=== PATIENT | male | born 1970 | race Caucasian/White ===

== ENCOUNTER 2017-12-29 15:00 | Emergency (ER) | payer MEDICARE ==
[~2017-12-29] VITALS: Ht 175.3 cm; Wt 99.8 kg
[2017-12-29 15:08] VITALS: BP_SYST 135
[2017-12-29] MEDS ORDERED: KETOROLAC TROMETHAMINE 60 MG/2 ML VIAL IM ONE (15:30)
[2017-12-29 16:10] VITALS: BP_SYST 135
== END 2017-12-29 16:10 | disposition home or self-care (01) ==
LOC: SED 15:00
DX: G89.29 Other chronic pain (principal); M54.5 Low back pain; F10.10 Alcohol abuse, uncomplicated
CPT/HCPCS: 96372; 99283; J1885

== ENCOUNTER 2018-03-25 21:41 | Emergency (ER) | payer MEDICARE ==
[~2018-03-25] VITALS: Ht 175.3 cm; Wt 99.8 kg
[2018-03-25 21:46] VITALS: BP_SYST 157
[2018-03-25] MEDS ORDERED: traMADol HCL HCL 50 MG TABLET (ULTRAM) PO ONE (22:45)
[2018-03-25 23:10] VITALS: BP_SYST 140
== END 2018-03-25 23:10 | disposition home or self-care (01) ==
LOC: SED 21:41
DX: G89.29 Other chronic pain (principal); M25.511 Pain in right shoulder
CPT/HCPCS: 99283

== ENCOUNTER 2018-09-22 17:00 | Emergency (ER) | payer MEDICARE ==
[~2018-09-22] VITALS: Ht 175.3 cm; Wt 99.8 kg
[2018-09-22 17:02] VITALS: BP_SYST 121
[2018-09-22] MEDS ORDERED: ONDANSETRON HCL 4 MG/2 ML VIAL IVP ONE (17:30)
[2018-09-22] MEDS ORDERED: LORazepam 2 MG/ML VIAL (FOR ER USE) IVP ONE (17:30)
[2018-09-22] MEDS ORDERED: MORPHINE 4 MG/ML INJ. SYRINGE IVP ONE (17:30)
[2018-09-22 18:07] LABS: BASOPHILS # (AUTO) 0.1 K/uL (0.0-0.2); BASOPHILS % (AUTO) 1.9 % (0.0-2.0); EOSINOPHILS # (AUTO) 0.1 K/uL (0.0-0.4); EOSINOPHILS % (AUTO) 2.1 % (0.0-4.0); HEMATOCRIT 47.4 % (36-54); HEMOGLOBIN 15.8 g/dL (14.0-18.0); LYMPHOCYTES % (AUTO) 32.3 % (20.5-51.5); MEAN CORPUSCULAR HEMOGLOBIN 31 pg (27-31); MEAN CORPUSCULAR HGB CONC 33 % (32-36); MEAN CORPUSCULAR VOLUME 94 fL (79.0-98.0); MONOCYTES # (AUTO) 0.5 K/uL (0.0-1.0); MONOCYTES % (AUTO) 7.8 % (1.7-9.3); NEUTROPHILS # (AUTO) 3.6 K/uL (1.8-7.7); NEUTROPHILS % (AUTO) 55.9 % (40.0-70.0); PLATELET COUNT (AUTO) 282 K/uL (130-430); RED BLOOD CELL COUNT(AUTO) 5.07 MIL/uL (4.2-6.2); RED CELL DISTRIBUTION WIDTH 14.1 % (9.0-15.0); WHITE BLOOD COUNT (AUTO) 6.3 K/uL (4.8-10.8)
[2018-09-22 18:26] LABS: BILIRUBIN,URINE NEGATIVE (NEGATIVE); BLOOD, URINE NEGATIVE (NEGATIVE); CLARITY/URINE CLEAR (CLEAR); COLOR,URINE YELLOW (YELLOW); GLUCOSE,URINE NEGATIVE (NEGATIVE); KETONES,URINE NEGATIVE (NEGATIVE); LEUKOCYTE ESTERASE ,URINE NEGATIVE (NEGATIVE); NITRITE, URINE NEGATIVE (NEGATIVE); PH,URINE 5.5 (5.0-8.0); PROTEIN URINE NEGATIVE (NEGATIVE); UROBILINOGEN,URINE 0.2 (0.2-1.0)
[2018-09-22 18:32] LABS: CREATININE 1.08 mg/dL (0.55-1.30); POTASSIUM 3.4 mmol/L (3.5-5.1)
[2018-09-22 18:37] LABS: ALBUMIN 3.7 g/dL (3.4-4.8); TOTAL BILIRUBIN 0.3 mg/dL (0.0-1.0)
[2018-09-22 18:51] VITALS: BP_SYST 121
== END 2018-09-22 18:51 | disposition home or self-care (01) ==
LOC: SED 17:00
DX: G89.29 Other chronic pain (principal); M54.5 Low back pain; M62.830 Muscle spasm of back; F32.9 Major depressive disorder, single episode, unspecified
CPT/HCPCS: 36415; 72100; 80053; 81003; 85025; 96374; 96375; 99285; J2060; J2270; J2405

== ENCOUNTER 2018-10-27 18:52 | Emergency (ER) | payer MEDICARE ==
[~2018-10-27] VITALS: Ht 175.3 cm; Wt 95.3 kg
[2018-10-27 18:57] VITALS: BP_SYST 129
[2018-10-27] MEDS ORDERED: KETOROLAC TROMETHAMINE 30 MG VIAL IM ONE (20:00)
[2018-10-27 20:16] VITALS: BP_SYST 126
== END 2018-10-27 20:16 | disposition home or self-care (01) ==
LOC: SED 18:52
DX: M77.52 Other enthesopathy of left foot and ankle (principal); M77.51 Other enthesopathy of right foot and ankle; F32.9 Major depressive disorder, single episode, unspecified
CPT/HCPCS: 96372; 99283; J1885

== ENCOUNTER 2018-11-22 08:23 | Emergency (ER) | payer MEDICARE ==
[~2018-11-22] VITALS: Ht 175.3 cm; Wt 99.8 kg
[2018-11-22 08:26] VITALS: BP_SYST 112
--- NOTE | 2018-11-22 08:32 | NUR ---
Patient to ER bed 8 to gown for evaluation. Side rails up. Report given to Olga LAW.
--- NOTE | 2018-11-22 08:34 | NUR ---
Patient arrived via POV, AAOx4, and ambulatory with steady gait. Patient c/c of fever and runny nose. Patient denies nausea, vomiting, and diarrhea. Patient states he is coughing up secretions, mostly clear, with some green discoloration. Patient was seen at [facility], and was diagnosed with rhinorrhea 2 days ago. Patient states they did not give him antibiotics, he is here for antibiotics and cough medicine. 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 No pain medications requested. Will notify MD. Will continue to follow up and monitor.
--- NOTE | 2018-11-22 08:36 | NUR ---
ER at bedside examining patient.
[2018-11-22 08:52] VITALS: BP_SYST 112
--- NOTE | 2018-11-22 08:52 | NUR ---
Patient given written and verbal discharge instructions and verbalizes understanding. ER MD discussed with patient the results and treatment provided. Patient in stable condition. ID arm band removed. Rx of Azithromycin given. Patient educated on pain management and to follow up with PMD. Pain Scale 2/10 with cough. Opportunity for questions provided and answered. Medication side effect fact sheet provided.
== END 2018-11-22 08:52 | disposition home or self-care (01) ==
LOC: SED 08:23
DX: J02.8 Acute pharyngitis due to other specified organisms (principal); B96.89 Other specified bacterial agents as the cause of diseases classified elsewhere; F17.200 Nicotine dependence, unspecified, uncomplicated; F32.9 Major depressive disorder, single episode, unspecified
CPT/HCPCS: 99283